=== PATIENT | female | born 1990 | race Caucasian/White ===

== ENCOUNTER 2017-08-03 21:57 | Emergency (ER) | payer MEDICAID, OTHER ==
[~2017-08-03] VITALS: Ht 175.3 cm; Wt 75.7 kg
[~2017-08-03 21:57] MED LIST: TERB250T55 PO
[2017-08-03 22:15] VITALS: BP 113/70
--- NOTE | 2017-08-03 22:47 | NUR ---
27Y/F C/O DIZZINESS, DECREASED APPETITE, BLURRED VISION, AND DECREASED ENERGY FOR 1 WEEK. PT STATES SHE HAS BEEN TOLD SHE WAS ANEMIC BEFORE AND THIS "FEELS THE SAME". PT AA&OX4, PALE IN COLOR, ACTING APPROPRIATE FOR AGE, SITTING IN CHAIR IN NO APPARENT DISTRESS AT THIS TIME. NO PMH, NKA
[2017-08-03 23:43] LABS: BASOPHILS % (AUTO) 0.7 % (0.0-2.0); EOSINOPHILS # (AUTO) 0.2 K/uL (0-0.4); EOSINOPHILS % (AUTO) 2.6 % (0.0-4.0); HEMATOCRIT 38.6 % (36-48); HEMOGLOBIN 12.7 g/dL (12.0-16.0); LYMPHOCYTES # (AUTO) 1.9 K/uL (2.5-16.5); LYMPHOCYTES % (AUTO) 32.5 % (20.5-51.1); MEAN CORPUSCULAR HEMOGLOBIN 30 pg (27-31); MEAN CORPUSCULAR HGB CONC 33 g/dL (33-37); MEAN CORPUSCULAR VOLUME 90.2 fL (80-94); MONOCYTES # (AUTO) 0.3 K/uL (0.8-1.0); MONOCYTES % (AUTO) 5.8 % (1.7-9.3); NEUTROPHILS # (AUTO) 3.4 K/uL (1.8-7.7); NEUTROPHILS % (AUTO) 58.4 % (42.2-75.2); PLATELET COUNT (AUTO) 153 K/uL (140-450); RED BLOOD CELL COUNT(AUTO) 4.28 MIL/uL (4.20-5.40); RED CELL DISTRIBUTION WIDTH 13.5 % (11.6-13.7); WHITE BLOOD COUNT (AUTO) 5.8 K/uL (4.8-10.8)
[2017-08-03 23:49] LABS: ANION GAP 10.2 (8-16); CARBON DIOXIDE 29.5 mmol/L (21-32); CREATININE 0.8 mg/dL (0.6-1.3); POTASSIUM 3.7 mmol/L (3.5-5.1)
[2017-08-04 00:16] VITALS: BP 120/77
--- NOTE | 2017-08-04 00:16 | NUR ---
Patient discharged with v/s stable. Written and verbal after care instructions given and explained. Patient verbalized understanding. Ambulatory with steady gait. All questions addressed prior to discharge. Advised to follow up with PMD.
== END 2017-08-04 00:16 | disposition home or self-care (01) ==
LOC: MED 21:57
DX: R42 Dizziness and giddiness (principal); R06.02 Shortness of breath; R53.1 Weakness; Z86.2 Personal history of diseases of the blood and blood-forming organs and certain disorders involving the immune mechanism
CPT/HCPCS: 36415; 80048; 85025; 99284

== ENCOUNTER 2017-08-11 15:22 | Emergency (ER) | payer OTHER ==
[~2017-08-11] VITALS: Ht 175.3 cm; Wt 78.0 kg
[2017-08-11 15:38] VITALS: BP 113/78
--- NOTE | 2017-08-11 15:40 | NUR ---
27Y/F BIB SELF FOR LOWER ABDOMINAL PAIN X 1 DAY. PATIENT ALSO COMPLAINS OF BREAST TENDERNESS. DENIES N/V/D; SKIN IS PINK/WARM/DRY; AAOX4 WITH EVEN AND STEADY GAIT; LUNGS CLEAR BL; HR EVEN AND REGULAR; PT DENIES ANY FEVER, CP, SOB, OR COUGH AT THIS TIME; PATIENT STATES PAIN OF 5/10 AT THIS TIME; VSS; PATIENT POSITIONED FOR COMFORT; HOB ELEVATED; BEDRAILS UP X1; BED DOWN. ER MD MADE AWARE OF PT STATUS.
[2017-08-11] MEDS ORDERED: KETOROLAC 60 MG/2 ML VIAL IM ONE (16:20)
[2017-08-11 17:22] LABS: APPEARANCE,URINE CLEAR (CLEAR); BILIRUBIN,URINE NEGATIVE (NEGATIVE); BLOOD, URINE NEGATIVE (NEGATIVE); LEUKOCYTE ESTERASE ,URINE NEGATIVE (NEGATIVE); NITRITE, URINE NEGATIVE (NEGATIVE); PH,URINE 7.5 (5.0-9.0); UGLUCOSE NEGATIVE (NEGATIVE)
[2017-08-11 17:25] LABS: COLOR,URINE STRAW (YELLOW)
[2017-08-11 17:37] LABS: BASOPHILS % (AUTO) 0.5 % (0.0-2.0); EOSINOPHILS # (AUTO) 0.2 K/uL (0-0.4); HEMATOCRIT 38.6 % (36-48); HEMOGLOBIN 12.7 g/dL (12.0-16.0); MEAN CORPUSCULAR HEMOGLOBIN 30 pg (27-31); MEAN CORPUSCULAR HGB CONC 33 g/dL (33-37); MEAN CORPUSCULAR VOLUME 90.6 fL (80-94); MONOCYTES # (AUTO) 0.3 K/uL (0.8-1.0); MONOCYTES % (AUTO) 5.2 % (1.7-9.3); NEUTROPHILS # (AUTO) 3.8 K/uL (1.8-7.7); NEUTROPHILS % (AUTO) 59.3 % (42.2-75.2); PLATELET COUNT (AUTO) 153 K/uL (140-450); RED BLOOD CELL COUNT(AUTO) 4.25 MIL/uL (4.20-5.40); RED CELL DISTRIBUTION WIDTH 13.7 % (11.6-13.7); WHITE BLOOD COUNT (AUTO) 6.4 K/uL (4.8-10.8)
[2017-08-11 17:59] LABS: ANION GAP 9.3 (8-16); CARBON DIOXIDE 29.4 mmol/L (21-32); CREATININE 0.7 mg/dL (0.6-1.3); POTASSIUM 3.7 mmol/L (3.5-5.1)
[2017-08-11 18:03] LABS: ALBUMIN 4.2 g/dL (3.4-5.0); TOTAL BILIRUBIN 0.3 mg/dL (0.0-1.0)
[2017-08-11 19:11] VITALS: BP 115/73
[2017-08-15 08:32] LABS: CHLAMYDIA TRACHOMATIS AMP DNA Negative (Negative)
== END 2017-08-11 19:05 | disposition home or self-care (01) ==
LOC: MED 15:22
DX: N83.202 Unspecified ovarian cyst, left side (principal); R10.30 Lower abdominal pain, unspecified
CPT/HCPCS: 36415; 76705; 76830; 80053; 81003; 81025; 83690; 85025; 87491; 93976; 96372; 99285; J1885; Q0092

== ENCOUNTER 2017-09-22 06:40 | Emergency (ER) | payer OTHER ==
[~2017-09-22] VITALS: Ht 175.3 cm; Wt 77.1 kg
[2017-09-22 06:44] VITALS: BP 110/60
--- NOTE | 2017-09-22 06:48 | NUR ---
TO BED # 8 REPORT GIVEN TO SHIRA BELLO.
--- NOTE | 2017-09-22 06:58 | NUR ---
PT GIVEN URINE CUP, STATES SHE CANT URINATE AT THIS TIME, PT IS DRINKNG WATER NOW WILL FOLLOW UP.
--- NOTE | 2017-09-22 06:59 | NUR ---
27Y/F C/O BL FLANK PAIN X3 DAYS, RATES PAIN 3/10 AT THIST TIME, NON RADIATING. PT HAS [place] W/ PCP TOMORROW AND WAS INSTRUCTED BY PCP TO VISIT ED TODAY BEFORE [place]. PT C/O N/V PAST 3 DAYS WELL, ABD , ROUND, SOFT, ACTIVE BS X4. PT C/O URINARY BURNING AND FREQUENCY AND YELLOW D/C. NO PMH, NKDA
--- NOTE | 2017-09-22 07:10 | NUR ---
ASSUMED CARE OF PATIENT; RECEIVED REPORT FROM SHIRA BELLO. PATIENT IS AOX4. GCS=15. AWAITING ER MD TREVIZO. AWAITING URINE SAMPLE. WILL CONTINUE TO MONITOR.
--- NOTE | 2017-09-22 07:50 | NUR ---
Dr. Garcia evaluating patient at bedside.
--- NOTE | 2017-09-22 08:26 | NUR ---
LAB BY BEDSIDE
[2017-09-22 08:33] LABS: APPEARANCE,URINE CLEAR (CLEAR); BILIRUBIN,URINE NEGATIVE (NEGATIVE); BLOOD, URINE NEGATIVE (NEGATIVE); COLOR,URINE YELLOW (YELLOW); LEUKOCYTE ESTERASE ,URINE TRACE (NEGATIVE); NITRITE, URINE NEGATIVE (NEGATIVE); PH,URINE 8.5 (5.0-9.0); UGLUCOSE NEGATIVE (NEGATIVE)
--- NOTE | 2017-09-22 08:37 | NUR ---
ULTRASOUND BY BEDSIDE
[2017-09-22 08:43] LABS: BASOPHILS % (AUTO) 0.3 % (0.0-2.0); EOSINOPHILS % (AUTO) 0.9 % (0.0-4.0); HEMATOCRIT 34.8 % (36-48); HEMOGLOBIN 11.5 g/dL (12.0-16.0); LYMPHOCYTES # (AUTO) 1.3 K/uL (2.5-16.5); MEAN CORPUSCULAR HEMOGLOBIN 30 pg (27-31); MEAN CORPUSCULAR HGB CONC 33 g/dL (33-37); MEAN CORPUSCULAR VOLUME 90.4 fL (80-94); MONOCYTES # (AUTO) 0.3 K/uL (0.8-1.0); MONOCYTES % (AUTO) 5.8 % (1.7-9.3); NEUTROPHILS # (AUTO) 2.8 K/uL (1.8-7.7); PLATELET COUNT (AUTO) 133 K/uL (140-450); RED BLOOD CELL COUNT(AUTO) 3.85 MIL/uL (4.20-5.40); RED CELL DISTRIBUTION WIDTH 13.6 % (11.6-13.7); WHITE BLOOD COUNT (AUTO) 4.5 K/uL (4.8-10.8)
[2017-09-22 09:30] LABS: RBC,URINE NONE SEEN /HPF (0-5); WBC,URINE 0-5 (RARE) /HPF (0-5)
[2017-09-22 10:34] VITALS: BP 129/76
== END 2017-09-22 10:34 | disposition home or self-care (01) ==
LOC: MED 06:40
DX: O26.891 Other specified pregnancy related conditions, first trimester (principal); R10.9 Unspecified abdominal pain; Z3A.01 Less than 8 weeks gestation of pregnancy; Z79.899 Other long term (current) drug therapy
CPT/HCPCS: 36415; 76770; 76817; 81001; 81025; 84702; 85025; 86900; 86901; 99285; Q0092

== ENCOUNTER 2017-10-03 10:36 | Emergency (ER) | payer OTHER ==
[~2017-10-03] VITALS: Ht 175.3 cm; Wt 79.0 kg
[2017-10-03 10:43] VITALS: BP 120/74
--- NOTE | 2017-10-03 10:49 | NUR ---
PT AMBULATES TO BED 1, REPORT GIVEN TO EUGENIA HANCOCK
--- NOTE | 2017-10-03 10:56 | NUR ---
27 yo f bib family w/ c/o brown vaginal discharge and intermittent mild abd cramping w/ tender lower back. pt reports nausea but no vomiting. denies fever/chills. OB established. MISC 1 aaox4. gcs 15. cms intact. rr even and unlabored. lungs bilaterally clear. er md travis notified. pt needs met. safety precautions in place. will continue to monitor.
[2017-10-03 11:35] LABS: APPEARANCE,URINE CLEAR (CLEAR); BILIRUBIN,URINE NEGATIVE (NEGATIVE); BLOOD, URINE NEGATIVE (NEGATIVE); COLOR,URINE YELLOW (YELLOW); LEUKOCYTE ESTERASE ,URINE TRACE (NEGATIVE); NITRITE, URINE NEGATIVE (NEGATIVE); PH,URINE 7.5 (5.0-9.0); UGLUCOSE NEGATIVE (NEGATIVE)
[2017-10-03 11:37] LABS: BASOPHILS % (AUTO) 0.9 % (0.0-2.0); EOSINOPHILS # (AUTO) 0.1 K/uL (0-0.4); HEMATOCRIT 36.3 % (36-48); HEMOGLOBIN 12.2 g/dL (12.0-16.0); LYMPHOCYTES # (AUTO) 1.4 K/uL (2.5-16.5); LYMPHOCYTES % (AUTO) 25.2 % (20.5-51.1); MEAN CORPUSCULAR HEMOGLOBIN 30 pg (27-31); MEAN CORPUSCULAR HGB CONC 34 g/dL (33-37); MEAN CORPUSCULAR VOLUME 89.1 fL (80-94); MONOCYTES # (AUTO) 0.3 K/uL (0.8-1.0); MONOCYTES % (AUTO) 5.1 % (1.7-9.3); NEUTROPHILS # (AUTO) 3.9 K/uL (1.8-7.7); NEUTROPHILS % (AUTO) 67.8 % (42.2-75.2); PLATELET COUNT (AUTO) 149 K/uL (140-450); RED BLOOD CELL COUNT(AUTO) 4.07 MIL/uL (4.20-5.40); RED CELL DISTRIBUTION WIDTH 13.7 % (11.6-13.7); WHITE BLOOD COUNT (AUTO) 5.7 K/uL (4.8-10.8)
--- NOTE | 2017-10-03 12:00 | NUR ---
PT RESTING COMFORTABLY ON [facility] AT THIS TIME. VSS. WILL CONTINUE TO MONITOR.
[2017-10-03 12:10] LABS: RBC,URINE 0-5 (RARE) /HPF (0-5); WBC,URINE 0-5 (RARE) /HPF (0-5)
--- NOTE | 2017-10-03 13:03 | NUR ---
PT AWAITING RESULTS AT THIS TIME. VSS. WILL CONTINUE TO MONITOR.
[2017-10-03 14:13] VITALS: BP 120/79
== END 2017-10-03 14:13 | disposition home or self-care (01) ==
LOC: MED 10:36
DX: O26.891 Other specified pregnancy related conditions, first trimester (principal); N89.8 Other specified noninflammatory disorders of vagina; Z3A.08 8 weeks gestation of pregnancy; Z79.899 Other long term (current) drug therapy
CPT/HCPCS: 36415; 76817; 81001; 81025; 84702; 85025; 86900; 86901; 87086; 99285

== ENCOUNTER 2017-10-26 11:46 | Emergency (ER) | payer MEDICAID, OTHER ==
[~2017-10-26] VITALS: Ht 175.3 cm; Wt 79.4 kg
[2017-10-26] MEDS ORDERED: NACL 0.9% 1,000 ML IV ONE (11:50)
[2017-10-26] MEDS ORDERED: ONDANSETRON 4 MG/2 ML VIAL IVP ONE (11:50)
[2017-10-26 11:58] VITALS: BP 121/71
[2017-10-26 12:26] LABS: BASOPHILS % (AUTO) 0.1 % (0.0-2.0); EOSINOPHILS # (AUTO) 0.1 K/uL (0-0.4); HEMATOCRIT 37.3 % (36-48); HEMOGLOBIN 12.2 g/dL (12.0-16.0); LYMPHOCYTES # (AUTO) 1.6 K/uL (2.5-16.5); LYMPHOCYTES % (AUTO) 23.8 % (20.5-51.1); MEAN CORPUSCULAR HEMOGLOBIN 30 pg (27-31); MEAN CORPUSCULAR HGB CONC 33 g/dL (33-37); MEAN CORPUSCULAR VOLUME 91.1 fL (80-94); MONOCYTES # (AUTO) 0.3 K/uL (0.8-1.0); NEUTROPHILS # (AUTO) 4.8 K/uL (1.8-7.7); NEUTROPHILS % (AUTO) 70.1 % (42.2-75.2); PLATELET COUNT (AUTO) 158 K/uL (140-450); RED CELL DISTRIBUTION WIDTH 13.7 % (11.6-13.7); WHITE BLOOD COUNT (AUTO) 6.8 K/uL (4.8-10.8)
[2017-10-26 12:27] LABS: APPEARANCE,URINE CLEAR (CLEAR); BILIRUBIN,URINE NEGATIVE (NEGATIVE); BLOOD, URINE NEGATIVE (NEGATIVE); COLOR,URINE YELLOW (YELLOW); LEUKOCYTE ESTERASE ,URINE NEGATIVE (NEGATIVE); NITRITE, URINE NEGATIVE (NEGATIVE); PH,URINE 6.5 (5.0-9.0); UGLUCOSE NEGATIVE (NEGATIVE)
[2017-10-26 12:36] LABS: ANION GAP 13.6 (8-16); CARBON DIOXIDE 24.5 mmol/L (21-32); CREATININE 0.5 mg/dL (0.6-1.3); POTASSIUM 3.1 mmol/L (3.5-5.1)
[2017-10-26 12:49] LABS: RBC,URINE NONE SEEN /HPF (0-5); WBC,URINE 0-5 (RARE) /HPF (0-5)
[2017-10-26] MEDS ORDERED: POTASSIUM CHLORIDE 10 MEQ TABER PO ONE (13:05)
[2017-10-26 13:45] VITALS: BP 121/71
== END 2017-10-26 13:45 | disposition home or self-care (01) ==
LOC: MED 11:46
DX: O21.0 Mild hyperemesis gravidarum (principal); Z3A.10 10 weeks gestation of pregnancy
CPT/HCPCS: 36415; 76801; 80048; 81001; 84702; 85025; 96361; 96374; 99285; J2405; J7030; Q0092

== ENCOUNTER 2019-06-09 02:23 | Emergency (ER) | payer MEDICAID ==
[~2019-06-09] VITALS: Ht 175.3 cm; Wt 78.5 kg
[2019-06-09 02:25] VITALS: BP 126/89
--- NOTE | 2019-06-09 02:25 | NUR ---
TO BED # 09 AMBULATORY
--- NOTE | 2019-06-09 02:40 | NUR ---
C/O COUGH, SORETHROAT, BODYACHES, FEVER X 1 WK FULL CLEAR SPEECH WITH NO DROOLING NOTED AT THIS TIME
[2019-06-09] MEDS ORDERED: DEXAMETHASONE 10 MG/ML VIAL PO ONE (03:55)
[2019-06-09 04:16] VITALS: BP 126/89
== END 2019-06-09 04:16 | disposition home or self-care (01) ==
LOC: MED 02:23
DX: J02.9 Acute pharyngitis, unspecified (principal); Z79.899 Other long term (current) drug therapy
CPT/HCPCS: 86308; 87081; 99283; J1100